=== PATIENT | male | born 1990 | race American Indian/Alaskan Native ===

== ENCOUNTER 2016-12-02 10:42 | Emergency (ER) | payer SELFPAY ==
[2016-12-02 11:39] VITALS: BP 115/76
[2016-12-02 13:02] LABS: Bacteria,Urine 1+ /HPF (Negative); Bilirubin,Urine NEG (Negative); Blood,Urine NEG (Negative); Ketones,Urine NEG (Negative); Leukocyte Esterase,Urine LG (Negative); Mucus,Urine FEW /HPF; Nitrite,Urine NEG (Negative); Protein,Urine <15 mg/dL mg/dL (Negative)
[2016-12-02 13:04] LABS: WBC,Urine > 182.0 /HPF (0.0-6.0)
[2016-12-02] MEDS ORDERED: ROCEPHIN IM ONE (13:28)
[2016-12-02] MEDS ORDERED: ZITHROMAX PO ONE (13:28)
[2016-12-02] MEDS ORDERED: XYLOCAINE 1% MPF 5 mL INFILTRATI ONE (13:28)
--- NOTE | 2016-12-02 13:47 | Emergency Department Report ---
Entered by BRETT VILLA, acting as scribe for CLEO TUCKER PA. ED Male HPI - General Chief complaint: Urogenital-Male Stated complaint: UTI Time Seen by Provider: 12/02/16 12:05 Source: patient Mode of arrival: Ambulatory Limitations: No Limitations - History of Present Illness Initial comments: 26 y/o male presents to the ED complaining of yellow colored penile discharge beginning yesterday. He admits to having recent unprotected intercourse. He has been previously diagnosed with Gonorrhea. The symptoms are aggravated by urination, with no alleviating factors. Associated symptom of dysuria (burning with urination), but he denies hematuria, urinary frequency, urinary urgency, nausea, vomiting, fever, SOB, chest pain, and abdominal pain. MD Complaint: penile discharge (yellow in color), dysuria (burning with urination) -: days(s) (1 day, yesterday) Location: penis Radiation: none Severity: mild Quality: burning Consistency: intermittent Improves with: none Worsens with: urination discharge (yellow in color). denies: swelling, blood in urine, fever, nausea/ vomiting, other (urinary urgency, urinary frequency) - Related Data Sexually active: Yes (patient admits to recently having unprotected intercourse) Previous Rx's Medication Instructions Recorded Last Taken Type Sulfamethoxazole/Trimethoprim 1 each PO BID #10 tablet 12/02/16 Unknown Rx [Bactrim DS TAB] Allergies Allergy/AdvReac Type Severity Reaction Status Date / Time No Known Allergies Allergy Unverified 10/05/13 23:19 ED Review of Systems Comment: All other systems reviewed and negative Constitutional: denies: chills, fever Respiratory: denies: shortness of breath Cardiovascular: denies: chest pain Gastrointestinal: denies: abdominal pain, nausea, vomiting Genitourinary: dysuria (burning with urination), discharge (yellow in color). denies: urgency, frequency, hematuria, testicular pain ED Past Medical Hx - Past Medical History Previous Medical History?: No - Surgical History Past Surgical History?: No - Social History Smoking Status: Never Smoker Substance Use Type: None - Medications Home Medications: Home Medications Medication Instructions Recorded Confirmed Last Taken Type Sulfamethoxazole/Trimethoprim 1 each PO BID #10 tablet 12/02/16 Unknown Rx [Bactrim DS TAB] ED Physical Exam - General Limitations: No Limitations - External exam: Present: normal external exam, other (Noted is some yellow penile discharge). Absent: erythema, swelling, lesions - Other Other exam information: GENERAL: The patient is well-developed and well-nourished. Patient is in NAD. HEAD: Normocephalic. Atraumatic. EYES: Extraocular motions are intact, PERRL. EARS: External ears are bilaterally normal; hearing grossly intact. NOSE: Normal nasal mucosa with no nasal discharge. THROAT: No erythema, swelling or exudates. NECK: Supple, nontender, without lymphadenopathy. No meningitic signs are noted. CHEST/LUNGS: Clear to auscultation throughout. HEART/CARDIOVASCULAR: Regular rate and rhythm. No murmurs, rubs or gallops. ABDOMEN: Abdomen is soft, nontender. Bowel sounds normoactive. No guarding or rebound tenderness. EXTREMITIES: No cyanosis, clubbing or edema. Peripheral pulses intact. Capillary refill less than 2 seconds. NEURO: Alert and oriented x 3. Normal gait. ED Course Vital Signs 12/02/16 11:37 Temperature 98.2 F Pulse Rate 64 Respiratory 16 Rate Blood Pressure 115/76 O2 Sat by Pulse 100 Oximetry ED Medical Decision Making - Lab Data Vital Signs 12/02/16 11:37 Temperature 98.2 F Pulse Rate 64 Respiratory 16 Rate Blood Pressure 115/76 O2 Sat by Pulse 100 Oximetry Lab Results 12/02/16 Range/Units 12:20 Urine Color Yellow (Yellow) Urine Turbidity Slightly-cloudy (Clear) Urine pH 8.0 H (5.0-7.0) Ur Specific [place] 1.016 (1.003-1.030) Urine Protein <15 mg/dl (Negative) mg/dL Urine Glucose (UA) Neg (Negative) mg/dL Urine Ketones Neg (Negative) mg/dL Urine Blood Neg (Negative) Urine Nitrite Neg (Negative) Urine Bilirubin Neg (Negative) Urine Urobilinogen 4.0 (<2.0) mg/dL Ur Leukocyte Esterase Lg (Negative) Urine WBC (Auto) > 182.0 H (0.0-6.0) /HPF Urine RBC (Auto) 3.0 (0.0-6.0) /HPF Urine Bacteria (Auto) 1+ (Negative) /HPF Urine Mucus Few /HPF - Medical Decision Making 26 y/o male presents complaining of yellow penile discharge and dysuria beginning yesterday. His urinalysis reveals large leukocyte esterase and elevated urine WBC. Patient is in no acute distress at this time. He will be discharged home on Bactrim and is encouraged to follow up with a primary care provider. He is encouraged to return to the emergency room for any worsening symptoms. ED Disposition Clinical Impression: Penile discharge UTI (urinary tract infection) Qualifiers: Urinary tract infection type: acute cystitis Hematuria presence: without hematuria Qualified Code(s): N30.00 - Acute cystitis without hematuria Disposition: DISCHARGED TO HOME OR SELFCARE Is pt being admited?: No Does the pt Need Aspirin: No Condition: Stable Instructions: Gonococcal Urethritis (ED), Chlamydia Infection (ED), Urinary Tract Infection in Men (ED) Additional Instructions: Follow-up with primary care provider. Return to the emergency department if symptoms worsen. Prescriptions: Sulfamethoxazole/Trimethoprim [Bactrim DS TAB] 1 each PO BID #10 tablet Referrals: PRIMARY CARE, [Primary Care Provider] - 3-5 Days [facility] [Outside] - 3-5 Days Forms: Work/School Release Form(ED) Time of Disposition: 13:44 This documentation as recorded by the ALLEN walters GRACE,accurately reflects the service I personally performed and the decisions made by ,CLEO TUCKER PA.
== END 2016-12-02 14:07 | disposition home or self-care (01) ==
LOC: ED 10:42
DX: R36.9 Urethral discharge, unspecified (principal); N30.00 Acute cystitis without hematuria
CPT/HCPCS: 81001; 87591; 96372; 99282; J0696

== ENCOUNTER 2018-06-02 21:11 | Emergency (ER) | payer SELFPAY ==
[2018-06-02 21:46] VITALS: BP 102/64
== END 2018-06-02 23:40 | disposition left against medical advice (07) ==
LOC: ED 21:11
DX: R05 Cough (principal); R07.0 Pain in throat; Z53.21 Procedure and treatment not carried out due to patient leaving prior to being seen by health care provider
CPT/HCPCS: 93005; 93010

== ENCOUNTER 2019-05-05 01:30 | Emergency (ER) | payer SELFPAY ==
[2019-05-05 02:22] LABS: Basophils % (Auto) 0.2 % (0.0-1.8); Hematocrit 43.3 % (35.5-45.6); Hemoglobin 14.7 gm/dl (11.8-15.2); Lymphocytes # (Auto) 0.8 K/mm3 (1.2-5.4); Lymphocytes % (Auto) 15.7 % (13.4-35.0); Mean Corpuscular HGB Conc 34 % (32-34); Mean Corpuscular Volume 93 fl (84-94); Monocytes # (Auto) 0.6 K/mm3 (0.0-0.8); Monocytes % (Auto) 12.3 % (0.0-7.3); Platelet Count 167 K/mm3 (140-440); Red Blood Count 4.68 M/mm3 (3.65-5.03); Red Cell Distribution Width 13.7 % (13.2-15.2)
[2019-05-05 02:36] LABS: Bacteria,Urine 1+ /HPF (Negative); Bilirubin,Urine NEG (Negative); Blood,Urine NEG (Negative); Color,Urine Amber (Yellow); Mucus,Urine 3+ /HPF
[2019-05-05 02:42] LABS: Alanine Aminotransferase 7 units/L (7-56); Albumin 4.4 g/dL (3.9-5); BUN/Creatinine Ratio 15; Blood Urea Nitrogen 9 mg/dL (9-20); Hemolysis Index 5
[2019-05-05] MEDS ORDERED: NACL 0.9% 1000 ML 1,000 ML IV ONE (03:58)
[2019-05-05] MEDS ORDERED: MORPHINE IV ONE (03:59)
[2019-05-05] MEDS ORDERED: ZOFRAN IV ONE (03:59)
--- NOTE | 2019-05-05 04:55 | Cat Scan Report ---
CT abdomen pelvis w con INDICATION / CLINICAL INFORMATION: Generalized abdominal pain and tenderness with nausea, vomiting and diarrhea. TECHNIQUE: The patient received 100 cc Omnipaque [address] scans at this location are performed using CT dose reduction for ALARA by means of automated exposure control. COMPARISON: None available. FINDINGS: ABDOMEN: There is mild to moderate diffuse bowel wall thickening involving the descending and proxima l sigmoid colon. There is mild increased density in the pericolonic fat. The remainder of the bowel i s normal. I see no evidence of obstruction or free air. There are a couple of tiny calculi in the lower pole the right kidney. There is no evidence of ureter al calculus or hydronephrosis. There is a 1.9 cm simple cyst in the right mid kidney anteromedially. There are multiple tiny smaller cysts scattered throughout both kidneys. The liver, spleen, gallbladd er, bile ducts, pancreas, and adrenal glands demonstrate no significant abnormality. PELVIS: There may be mild bowel wall thickening involving the rectum. The distal sigmoid colon appear s spared. The distal ureters, urinary bladder and prostate gland are normal. A normal retrocecal appe ndix is present. There is no evidence of diverticulitis. No abnormal mass or fluid collection is seen . I do not identify a hernia. No acute osseous abnormality is identified. IMPRESSION: 1. Mild to moderate left colitis. The findings are nonspecific and may be related to infectious, infl ammatory and pseudomembranous causes. 2. A couple of tiny nonobstructive right renal calculi. Bilateral simple renal cysts. Signer Name: Jeffrey Roberts MD Signed: 05/05/2019 4:50 AM Workstation Name: [email or web address]
--- NOTE | 2019-05-05 05:40 | Emergency Department Report ---
ED Abdominal Pain HPI - General Chief Complaint: Abdominal Pain Stated Complaint: ABDOMINAL PAIN Time Seen by Provider: 05/05/19 03:56 Source: patient, EMS Mode of arrival: Ambulatory Limitations: No Limitations - History of Present Illness Initial Comments: 28-year-old -Portuguese male presents to the emergency room for lower abdominal pain since Friday. Patient admits to nausea vomiting and diarrhea. Patient denies any fever or chills. Patient reports he has watery diarrhea. No past medical history currently takes no medications on a daily basis. MD Complaint: abdominal pain Onset/Timin Location: LLQ Severity: severe Severity scale (0 -10): 10 Quality: stabbing, sharp Consistency: constant Improves With: nothing Worsens With: nothing Associated Symptoms: nausea, vomiting, diarrhea - Related Data Previous Rx's Medication Instructions Recorded Last Taken Type Sulfamethoxazole/Trimethoprim 1 each PO BID #10 tablet 12/02/16 Unknown Rx [Bactrim DS TAB] Acetaminophen/Codeine [Tylenol 1 tab PO Q6H PRN #12 tab 07/23/18 Unknown Rx /Codeine # 3 tab] Amoxicillin/K Clav Tab [Augmentin 1 tab PO Q12HR #20 tab 07/23/18 Unknown Rx 875 mg] Chlorhexidine Mouthwash [Peridex] 15 ml MM BID #1 bottle 07/23/18 Unknown Rx Ibuprofen [Motrin] 600 mg PO Q8H PRN #20 tablet 07/23/18 Unknown Rx Ciprofloxacin HCl [Ciprofloxacin 500 mg PO Q12HR 5 Days #10 tab 05/05/19 Unknown Rx TAB] metroNIDAZOLE [Flagyl] 500 mg PO Q12HR #14 tab 05/05/19 Unknown Rx Allergies Allergy/AdvReac Type Severity Reaction Status Date / Time No Known Allergies Allergy Verified 06/02/18 21:45 ED Review of Systems ROS: Stated complaint: ABDOMINAL PAIN Other details as noted in HPI Comment: All other systems reviewed and negative ED Past Medical Hx - Past Medical History Previous Medical History?: No - Surgical History Past Surgical History?: No - Social History Smoking Status: Never Smoker Substance Use Type: None - Medications Home Medications: Home Medications Medication Instructions Recorded Confirmed Last Taken Type Sulfamethoxazole/Trimethoprim 1 each PO BID #10 tablet 12/02/16 Unknown Rx [Bactrim DS TAB] Acetaminophen/Codeine [Tylenol 1 tab PO Q6H PRN #12 tab 07/23/18 Unknown Rx /Codeine # 3 tab] Amoxicillin/K Clav Tab [Augmentin 1 tab PO Q12HR #20 tab 07/23/18 Unknown Rx 875 mg] Chlorhexidine Mouthwash [Peridex] 15 ml MM BID #1 bottle 07/23/18 Unknown Rx Ibuprofen [Motrin] 600 mg PO Q8H PRN #20 tablet 07/23/18 Unknown Rx Ciprofloxacin HCl [Ciprofloxacin 500 mg PO Q12HR 5 Days #10 tab 05/05/19 Unknown Rx TAB] metroNIDAZOLE [Flagyl] 500 mg PO Q12HR #14 tab 05/05/19 Unknown Rx ED Physical Exam - General Limitations: No Limitations General appearance: alert, in no apparent distress - Head Head exam: Present: atraumatic, normocephalic - Eye Eye exam: Present: normal appearance - ENT ENT exam: Present: mucous membranes moist - Neck Neck exam: Present: normal inspection, full ROM - Respiratory Respiratory exam: Present: normal lung sounds bilaterally. Absent: respiratory distress - Cardiovascular Cardiovascular Exam: Present: regular rate, normal rhythm. Absent: systolic murmur, diastolic murmur, rubs, gallop - GI/Abdominal GI/Abdominal exam: Present: soft, tenderness (llq). Absent: distended - Neurological Exam Neurological exam: Present: alert, oriented X3 - Psychiatric Psychiatric exam: Present: normal affect, normal mood - Skin Skin exam: Present: warm, dry, intact, normal color. Absent: rash ED Course Vital Signs 05/05/19 05/05/19 01:36 04:41 Temperature 99.0 F Pulse Rate 72 Respiratory 18 16 Rate Blood Pressure 110/77 O2 Sat by Pulse 99 Oximetry ED Medical Decision Making - Lab Data Result diagrams: 05/05/19 01:42 05/05/19 01:42 - Radiology Data Radiology results: report reviewed Patient: DEVANG DE LA CRUZ JR MR#: [id number] : 1990 Acct:[id number] Age/Sex: 28 / M ADM Date: 05/05/19 Loc: ED Attending Dr: Ordering Physician: JOHNNIE ALMEIDA Date of Service: 05/05/19 Procedure(s): CT abdomen pelvis w con Accession Number(s): [id number] cc: JOHNNIE ALMEIDA CT abdomen pelvis w con INDICATION / CLINICAL INFORMATION: Generalized abdominal pain and tenderness with nausea, vomiting and diarrhea. TECHNIQUE: The patient received 100 cc Omnipaque [address] scans at this location are performed using CT dose reduction for ALARA by means of automated exposure control. COMPARISON: None available. FINDINGS: ABDOMEN: There is mild to moderate diffuse bowel wall thickening involving the descending and proximal sigmoid colon. There is mild increased density in the pericolonic fat. The remainder of the bowel is normal. I see no evidence of obstruction or free air. There are a couple of tiny calculi in the lower pole the right kidney. There is no evidence of ureteral calculus or hydronephrosis. There is a 1.9 cm simple cyst in the right mid kidney anteromedially. There are multiple tiny smaller cysts scattered throughout both kidneys. The liver, spleen, gallbladder, bile ducts, pancreas, and adrenal glands demonstrate no significant abnormality. PELVIS: There may be mild bowel wall thickening involving the rectum. The distal sigmoid colon appears spared. The distal ureters, urinary bladder and prostate gland are normal. A normal retrocecal appendix is present. There is no evidence of diverticulitis. No abnormal mass or fluid collection is seen. I do not identify a hernia. No acute osseous abnormality is identified. IMPRESSION: 1. Mild to moderate left colitis. The findings are nonspecific and may be related to infectious, inflammatory and pseudomembranous causes. 2. A couple of tiny nonobstructive right renal calculi. Bilateral simple renal cysts. Signer Name: Jeffrey Roberts MD Signed: 05/05/2019 4:50 AM Workstation Name: [id number] Transcribed By: RT Dictated By: Jeffrey Roberts MD Electronically Authenticated By: Jeffrey Roberts MD Signed Date/Time: 05/05/19 0450 DD/ 0443 TD/TT: - Medical Decision Making 28-year-old -Portuguese male presents to the emergency room for lower abdominal pain since Friday. Patient admits to nausea vomiting and diarrhea. Patient denies any fever or chills. Patient reports he has watery diarrhea. No past medical history currently takes no medications on a daily basis. He was given IV fluids morphine and Zofran. Patient will be discharged home on Flagyl and Cipro for colitis. Patient be referred to urology for kidney stones gastroenterology for colitis. Critical care attestation.: If time is entered above; I have spent that time in minutes in the direct care of this critically ill patient, excluding procedure time. ED Disposition Clinical Impression: Colitis, Kidney stone Disposition: - TO HOME OR SELFCARE Is pt being admited?: No Does the pt Need Aspirin: No Condition: Stable Instructions: Infectious Colitis (ED) Additional Instructions: Complete antibiotics as prescribed. He can try [id number] loperamide or Imodium take as directed on package. Increase her water intake of vein should diet as tolerated. Prescriptions: Ciprofloxacin HCl [Ciprofloxacin TAB] 500 mg PO Q12HR 5 Days #10 tab metroNIDAZOLE [Flagyl] 500 mg PO Q12HR #14 tab Referrals: TEETEE CAICEDOTIPTON MD JOYCE [Primary Care Provider] - 3-5 Days MYA DEL ROSARIO MD [Staff Physician] - 3-5 Days [facility] [Provider Group] - 3-5 Days Forms: Work/School Release Form(ED)
[2019-05-05 06:08] VITALS: BP 117/80
== END 2019-05-05 06:07 | disposition home or self-care (01) ==
LOC: ED 01:30
DX: K52.9 Noninfective gastroenteritis and colitis, unspecified (principal); N20.0 Calculus of kidney
CPT/HCPCS: 36415; 74177; 80053; 81001; 83690; 85025; 96361; 96374; 96375; 99284; J2270; J2405; J7030; Q9967

== ENCOUNTER 2019-12-29 11:42 | Emergency (ER) | payer SELFPAY ==
[2019-12-29 12:01] VITALS: BP 113/81
--- NOTE | 2019-12-29 13:55 | Emergency Department Report ---
ED Male HPI - General Chief complaint: Urogenital-Male Stated complaint: BACK PAIN/DISCHARGE Time Seen by Provider: 12/29/19 13:22 Source: patient Mode of arrival: Ambulatory Limitations: No Limitations - History of Present Illness Initial comments: This is a 29-year-old male nontoxic, well nourished in appearance, no acute signs of distress presents to the ED for STD testing. Stated has some intermittent small amount of white colored penile discharge. Patient denies any testicular pain or swelling. Patient denies any penile ulcers or lesions. Patient denies any nausea, vomiting, chest pain, shortness of breathe, fever, chills, headache, back pain, numbness, tingling, stiff neck. Denies any back pains. Patient denies any urinary symptoms. Patient denies any allergies or PMH. -: days(s) Radiation: none Severity scale (0 -10): 0 Improves with: none Worsens with: none discharge. denies: swelling, mass, rash, urinary retention, blood in urine, dysuria, fever, nausea/vomiting, incontinence - Related Data Previous Rx's Medication Instructions Recorded Last Taken Type Sulfamethoxazole/Trimethoprim 1 each PO BID #10 tablet 12/02/16 Unknown Rx [Bactrim DS TAB] Acetaminophen/Codeine [Tylenol 1 tab PO Q6H PRN #12 tab 07/23/18 Unknown Rx /Codeine # 3 tab] Amoxicillin/K Clav Tab [Augmentin 1 tab PO Q12HR #20 tab 07/23/18 Unknown Rx 875 mg] Chlorhexidine Mouthwash [Peridex] 15 ml MM BID #1 bottle 07/23/18 Unknown Rx Ibuprofen [Motrin] 600 mg PO Q8H PRN #20 tablet 07/23/18 Unknown Rx Ciprofloxacin HCl [Ciprofloxacin 500 mg PO Q12HR 5 Days #10 tab 05/05/19 Unknown Rx TAB] metroNIDAZOLE [Flagyl] 500 mg PO Q12HR #14 tab 05/05/19 Unknown Rx Allergies Allergy/AdvReac Type Severity Reaction Status Date / Time No Known Allergies Allergy Verified 06/02/18 21:45 ED Review of Systems ROS: Stated complaint: BACK PAIN/DISCHARGE Other details as noted in HPI Constitutional: denies: chills, fever Eyes: denies: eye pain, eye discharge, vision change ENT: denies: ear pain, throat pain Respiratory: denies: cough, shortness of breath, wheezing Cardiovascular: denies: chest pain, palpitations Endocrine: no symptoms reported Gastrointestinal: denies: abdominal pain, nausea, diarrhea Genitourinary: discharge. denies: urgency, dysuria, frequency, hematuria, testicular pain, testicular mass Musculoskeletal: denies: back pain, joint swelling, arthralgia Skin: denies: rash, lesions Neurological: denies: headache, weakness, paresthesias Psychiatric: denies: anxiety, depression Hematological/Lymphatic: denies: easy bleeding, easy bruising ED Past Medical Hx - Past Medical History Previous Medical History?: No - Surgical History Past Surgical History?: No - Social History Smoking Status: Never Smoker Substance Use Type: None - Medications Home Medications: Home Medications Medication Instructions Recorded Confirmed Last Taken Type Sulfamethoxazole/Trimethoprim 1 each PO BID #10 tablet 12/02/16 Unknown Rx [Bactrim DS TAB] Acetaminophen/Codeine [Tylenol 1 tab PO Q6H PRN #12 tab 07/23/18 Unknown Rx /Codeine # 3 tab] Amoxicillin/K Clav Tab [Augmentin 1 tab PO Q12HR #20 tab 07/23/18 Unknown Rx 875 mg] Chlorhexidine Mouthwash [Peridex] 15 ml MM BID #1 bottle 07/23/18 Unknown Rx Ibuprofen [Motrin] 600 mg PO Q8H PRN #20 tablet 07/23/18 Unknown Rx Ciprofloxacin HCl [Ciprofloxacin 500 mg PO Q12HR 5 Days #10 tab 05/05/19 Unknown Rx TAB] metroNIDAZOLE [Flagyl] 500 mg PO Q12HR #14 tab 05/05/19 Unknown Rx ED Physical Exam - General Limitations: No Limitations ED Course Vital Signs 12/29/19 11:51 Temperature 98.1 F Pulse Rate 60 Respiratory 18 Rate Blood Pressure 113/81 O2 Sat by Pulse 100 Oximetry - Reevaluation(s) Reevaluation #1: 12/29/19 13:53 Patient is speaking in full sentences with no signs of distress noted. ED Medical Decision Making - Medical Decision Making This is a 29-year-old male that presents with nonmedical emergency. Patient is stable and was examined by me. Patient is asymptomatic and denies any symptoms. Patient states he just wants to be tested for STD. I will refer the patient [facility]. At time of discharge, the patient does not seem toxic or ill in appearance. No acute signs of distress noted. Patient agrees to discharge treatment plan of care. No further questions noted by the patient. Critical care attestation.: If time is entered above; I have spent that time in minutes in the direct care of this critically ill patient, excluding procedure time. ED Disposition Clinical Impression: Possible exposure to STD Disposition: MED SCREENING EXAM-LEFT Is pt being admited?: No Does the pt Need Aspirin: No Condition: Stable Instructions: Safe Sex (ED) Additional Instructions: Follow-up with a primary care doctor in 3-5 days or if symptoms worsen and continue return to emergency room as soon as possible. Referrals: PRIMARY MD BRETT [Primary Care Provider] - 3-5 Days RUTHY BIGGS MD [Staff Physician] - 3-5 Days [facility] [Provider Group] - 3-5 Days
== END 2019-12-29 14:00 | disposition left against medical advice (07) ==
LOC: ED 11:42
DX: R36.9 Urethral discharge, unspecified (principal); Z20.2 Contact with and (suspected) exposure to infections with a predominantly sexual mode of transmission
CPT/HCPCS: 99282

== ENCOUNTER 2020-07-10 06:19 | Emergency (ER) | payer SELFPAY ==
[2020-07-10] MEDS ORDERED: oxyCODONE /ACETAMINOPHEN 5-325MG TAB PO ONE (11:22)
[2020-07-10] MEDS ORDERED: KETOROLAC 10 MG TAB PO ONE (11:25)
[2020-07-10 12:14] LABS: Bilirubin,Urine NEG (Negative); Blood,Urine NEG (Negative); Color,Urine Yellow (Yellow); Mucus,Urine 1+ /HPF; Protein,Urine <15 mg/dL mg/dL (Negative); Urobilinogen,Urine < 2.0 mg/dL (<2.0)
--- NOTE | 2020-07-10 12:23 | Emergency Department Report ---
ED General Adult HPI - General Chief complaint: Back Pain/Injury Stated complaint: BACK PAIN, HEMORRHOIDS Time Seen by Provider: 07/10/20 10:27 Source: patient Mode of arrival: Ambulatory Limitations: No Limitations - History of Present Illness Initial comments: 30-year-old -[place] male patient presents with complaints of rectal pain x3 days. Patient states he believes he has a hemorrhoid because he has had a nodule in the area for years that swells up sometimes and drinks again. He reports he has been using [id number] hemorrhoid creams and his symptoms are not improving. He states the pain is radiating into his lower back and rates the pain as a 9/10 in severity. Pain worsens with sitting on his bottom. He denies any dysuria/hematuria, penile discharge, testicular pain/swelling, abdominal pain, nausea/vomiting/diarrhea, fever/chills/sweats, hematochezia, or blood when he wipes. Patient does admit to anal intercourse. He denies any other past medical history. Severity scale (0 -10): 10 - Related Data Previous Rx's Medication Instructions Recorded Last Taken Type Sulfamethoxazole/Trimethoprim 1 each PO BID #10 tablet 12/02/16 Unknown Rx [Bactrim DS TAB] Amoxicillin/K Clav Tab [Augmentin 1 tab PO Q12HR #20 tab 07/23/18 Unknown Rx 875 mg] Chlorhexidine Mouthwash [Peridex] 15 ml MM BID #1 bottle 07/23/18 Unknown Rx Ibuprofen [Motrin] 600 mg PO Q8H PRN #20 tablet 07/23/18 Unknown Rx Ciprofloxacin HCl [Ciprofloxacin 500 mg PO Q12HR 5 Days #10 tab 05/05/19 Unknown Rx TAB] metroNIDAZOLE [Flagyl] 500 mg PO Q12HR #14 tab 05/05/19 Unknown Rx Acetaminophen/Codeine [Tylenol 1 tab PO Q6H PRN #12 tab 07/10/20 Unknown Rx /Codeine # 3 tab] Docusate Sodium [Colace] 100 mg PO BID 10 Days #20 capsule 07/10/20 Unknown Rx Hydrocortisone/Lidocaine/Aloe 1 each RC TID PRN 7 Days #1 kit 07/10/20 Unknown Rx [Nuria-Madan 2-2% Kit] predniSONE [Deltasone] 20 mg PO BID 3 Days #6 tab 07/10/20 Unknown Rx Allergies Allergy/AdvReac Type Severity Reaction Status Date / Time No Known Allergies Allergy Verified 06/02/18 21:45 ED Review of Systems ROS: Stated complaint: BACK PAIN, HEMORRHOIDS Other details as noted in HPI Constitutional: denies: chills, diaphoresis, fever, malaise Respiratory: denies: shortness of breath Gastrointestinal: denies: abdominal pain, nausea, vomiting, diarrhea, constipation Genitourinary: denies: urgency, dysuria, frequency, hematuria, discharge, testicular pain, testicular mass Musculoskeletal: as per HPI. denies: joint swelling, arthralgia Skin: denies: rash, lesions, change in color Hematological/Lymphatic: denies: swollen glands ED Past Medical Hx - Past Medical History Previous Medical History?: No - Surgical History Past Surgical History?: No - Social History Smoking Status: Never Smoker Substance Use Type: None - Medications Home Medications: Home Medications Medication Instructions Recorded Confirmed Last Taken Type Sulfamethoxazole/Trimethoprim 1 each PO BID #10 tablet 12/02/16 Unknown Rx [Bactrim DS TAB] Amoxicillin/K Clav Tab [Augmentin 1 tab PO Q12HR #20 tab 07/23/18 Unknown Rx 875 mg] Chlorhexidine Mouthwash [Peridex] 15 ml MM BID #1 bottle 07/23/18 Unknown Rx Ibuprofen [Motrin] 600 mg PO Q8H PRN #20 tablet 07/23/18 Unknown Rx Ciprofloxacin HCl [Ciprofloxacin 500 mg PO Q12HR 5 Days #10 tab 05/05/19 Unknown Rx TAB] metroNIDAZOLE [Flagyl] 500 mg PO Q12HR #14 tab 05/05/19 Unknown Rx Acetaminophen/Codeine [Tylenol 1 tab PO Q6H PRN #12 tab 07/10/20 Unknown Rx /Codeine # 3 tab] Docusate Sodium [Colace] 100 mg PO BID 10 Days #20 capsule 07/10/20 Unknown Rx Hydrocortisone/Lidocaine/Aloe 1 each RC TID PRN 7 Days #1 kit 07/10/20 Unknown Rx [Nuria-Madan 2-2% Kit] predniSONE [Deltasone] 20 mg PO BID 3 Days #6 tab 07/10/20 Unknown Rx ED Physical Exam - General Limitations: No Limitations General appearance: alert, in no apparent distress - Head Head exam: Present: atraumatic, normocephalic - Eye Eye exam: Present: normal appearance. Absent: scleral icterus - Respiratory Respiratory exam: Absent: respiratory distress - Cardiovascular Cardiovascular Exam: Present: regular rate - GI/Abdominal GI/Abdominal exam: Present: soft, normal bowel sounds. Absent: distended, tenderness, guarding, rebound, rigid - Rectal Rectal exam: Present: hemorrhoids (Approximately 2 cm thrombosed external hemorrhoid noted with significant tenderness to palpation; no fluctuance or surrounding erythema is noted) - Extremities Exam Extremities exam: Present: normal inspection - Back Exam Back exam: Present: normal inspection, full ROM. Absent: tenderness - Neurological Exam Neurological exam: Present: alert, oriented X3 - Psychiatric Psychiatric exam: Present: normal affect, normal mood - Skin Skin exam: Present: warm, dry, intact, normal color. Absent: rash, cyanosis, diaphoretic, ecchymosis ED Course Vital Signs 07/10/20 07/10/20 07/10/20 07:35 11:56 11:57 Temperature 98.1 F Pulse Rate 77 Respiratory 16 16 18 Rate Blood Pressure 122/78 [Right] O2 Sat by Pulse 98 Oximetry ED Medical Decision Making - Medical Decision Making 30-year-old -[place] male patient presents with complaints of rectal pain x3 days. Patient states he believes he has a hemorrhoid because he has had a nodule in the area for years that swells up sometimes and drinks again. He reports he has been using [id number] hemorrhoid creams and his symptoms are not improving. He states the pain is radiating into his lower back and rates the pain as a 9/10 in severity. Pain worsens with sitting on his bottom. He denies any dysuria/hematuria, penile discharge, testicular pain/swelling, abdominal pain, nausea/vomiting/diarrhea, fever/chills/sweats, hematochezia, or blood when he wipes. Patient does admit to anal intercourse. He denies any other past medical history. Thrombosed hemorrhoid noted on rectal exam without erythema, bleeding, or drainage. Will treat with sits baths and medications. Patient to follow-up with PCP and general surgery for further evaluation. Discussed signs and symptoms that should prompt immediate return to the emergency department in detail with patient who verbalizes understanding. Critical care attestation.: If time is entered above; I have spent that time in minutes in the direct care of this critically ill patient, excluding procedure time. ED Disposition Clinical Impression: External hemorrhoid, thrombosed Disposition: DC-01 TO HOME OR SELFCARE Is pt being admited?: No Condition: Stable Instructions: Hemorrhoids (ED), Sitz Bath (GEN) Prescriptions: Hydrocortisone/Lidocaine/Aloe [Nuria-Madan 2-2% Kit] 1 each RC TID PRN 7 Days #1 kit PRN Reason: rectal pain/itching Docusate Sodium [Colace] 100 mg PO BID 10 Days #20 capsule predniSONE [Deltasone] 20 mg PO BID 3 Days #6 tab Acetaminophen/Codeine [Tylenol /Codeine # 3 tab] 1 tab PO Q6H PRN #12 tab PRN Reason: Pain , Severe (7-10) Referrals: PRIMARY CAREMD [Primary Care Provider] - 3-5 Days BRENDAN KHAN MD [Staff Physician] - 3-5 Days Forms: Work/School Release Form(ED)
[2020-07-10 12:50] VITALS: BP 111/58
== END 2020-07-10 12:50 | disposition home or self-care (01) ==
LOC: ED 06:19
DX: K64.5 Perianal venous thrombosis (principal); Z79.899 Other long term (current) drug therapy
CPT/HCPCS: 81001

== ENCOUNTER 2021-05-10 21:37 | Emergency (ER) | payer SELFPAY ==
[2021-05-10 22:19] VITALS: BP 146/91
[2021-05-10 23:05] LABS: Alanine Aminotransferase 7 units/L (7-56); Albumin 4.9 g/dL (3.9-5); BUN/Creatinine Ratio 10; Basophils % (Auto) 0.3 % (0.0-1.8); Blood Urea Nitrogen 8 mg/dL (9-20); Calcium 9.4 mg/dL (8.4-10.2); Eosinophils # (Auto) 0.1 K/mm3 (0.0-0.4); Hematocrit 44.7 % (35.5-45.6); Hemoglobin 15.2 gm/dl (11.8-15.2); Hemolysis Index 1; Lymphocytes # (Auto) 1.5 K/mm3 (1.2-5.4); Lymphocytes % (Auto) 20.2 % (13.4-35.0); Mean Corpuscular HGB Conc 34 % (32-34); Mean Corpuscular Volume 94 fl (84-94); Monocytes # (Auto) 0.8 K/mm3 (0.0-0.8); Monocytes % (Auto) 11.5 % (0.0-7.3); Platelet Count 195 K/mm3 (140-440); Red Blood Count 4.78 M/mm3 (3.65-5.03); Red Cell Distribution Width 12.5 % (13.2-15.2)
[2021-05-10] MEDS ORDERED: FAMOTIDINE 20 MG TAB PO ONE (23:50)
[2021-05-10] MEDS ORDERED: ONDANSETRON 4 MG ODT TAB PO ONE (23:50)
--- NOTE | 2021-05-10 23:55 | Emergency Department Report ---
ED N/V/D HPI - General Chief complaint: Nausea/Vomiting/Diarrhea Stated complaint: CHILLS THROWING UP Source: patient Mode of arrival: Ambulatory Limitations: No Limitations - History of Present Illness Initial comments: Patient is a 30-year-old -[place] male with no past medical history presents to the ED with complaint of acute onset persistent nausea, vomiting, diarrhea and diffuse abdominal pain for the last 2 days. Patient states that the last meal he ate was a pizza at a friend's house but states that no one else at home is at similar symptoms. Patient states that he has not been able to keep anything down the last 24 hours. Patient states that he has had up to 3 episodes of nausea and vomiting and diarrhea. Patient denies dizziness, syncope, fever, chills, cough, chest pain, shortness of breath, dysuria, urinary frequency and urgency, testicular pain, hematuria, low back pain or palpitations, headache or sore throat. MD complaint: nausea, vomiting, diarrhea -: Sudden, days(s) (2) Description of Vomiting: food contents, watery Description of Diarrhea: water Associated Abdominal Pain: No Location: diffuse Radiation: none Severity: moderate Pain Scale: 3 Quality: cramping, dull Consistency: intermittent Improves with: none Worsens with: vomiting Context: possible food poisoning Associated Symptoms: denies other symptoms, loss of appetite, nausea/vomiting. denies: myalgias, chest pain, cough, diaphoresis, fever/chills, headaches, malaise, rash, dysuria, shortness of breath, syncope, weakness - Related Data Previous Rx's Medication Instructions Recorded Last Taken Type Sulfamethoxazole/Trimethoprim 1 each PO BID #10 tablet 12/02/16 Unknown Rx [Bactrim DS TAB] Amoxicillin/K Clav Tab [Augmentin 1 tab PO Q12HR #20 tab 07/23/18 Unknown Rx 875 mg] Chlorhexidine Mouthwash [Peridex] 15 ml MM BID #1 bottle 07/23/18 Unknown Rx Ibuprofen [Motrin] 600 mg PO Q8H PRN #20 tablet 07/23/18 Unknown Rx Ciprofloxacin HCl [Ciprofloxacin 500 mg PO Q12HR 5 Days #10 tab 05/05/19 Unknown Rx TAB] metroNIDAZOLE [Flagyl] 500 mg PO Q12HR #14 tab 05/05/19 Unknown Rx Acetaminophen/Codeine [Tylenol 1 tab PO Q6H PRN #12 tab 07/10/20 Unknown Rx /Codeine # 3 tab] Docusate Sodium [Colace] 100 mg PO BID 10 Days #20 capsule 07/10/20 Unknown Rx Hydrocortisone/Lidocaine/Aloe 1 each RC TID PRN 7 Days #1 kit 07/10/20 Unknown Rx [Nuria-Madan 2-2% Kit] predniSONE [Deltasone] 20 mg PO BID 3 Days #6 tab 07/10/20 Unknown Rx Dicyclomine [Bentyl] 20 mg PO Q6H PRN #24 tablet 05/10/21 Unknown Rx Famotidine [Pepcid] 20 mg PO BID #60 tablet 05/10/21 Unknown Rx Ondansetron [Zofran Odt] 4 mg PO Q6HR PRN #20 tab.rapdis 05/10/21 Unknown Rx Allergies Allergy/AdvReac Type Severity Reaction Status Date / Time No Known Allergies Allergy Verified 06/02/18 21:45 ED Review of Systems ROS: Stated complaint: CHILLS THROWING UP Other details as noted in HPI Constitutional: chills, malaise, weakness. denies: fever Eyes: denies: eye pain, eye discharge, vision change ENT: denies: ear pain, throat pain Respiratory: denies: cough, shortness of breath, wheezing Cardiovascular: denies: chest pain, palpitations Endocrine: no symptoms reported Gastrointestinal: abdominal pain (Diffuse), nausea, vomiting, diarrhea Genitourinary: denies: urgency, dysuria Musculoskeletal: denies: back pain, joint swelling, arthralgia Skin: denies: rash, lesions Neurological: denies: headache, weakness, paresthesias Psychiatric: denies: anxiety, depression Hematological/Lymphatic: denies: easy bleeding, easy bruising ED Past Medical Hx - Past Medical History Previous Medical History?: No - Surgical History Past Surgical History?: No - Social History Smoking Status: Never Smoker Substance Use Type: None - Medications Home Medications: Home Medications Medication Instructions Recorded Confirmed Last Taken Type Sulfamethoxazole/Trimethoprim 1 each PO BID #10 tablet 12/02/16 Unknown Rx [Bactrim DS TAB] Amoxicillin/K Clav Tab [Augmentin 1 tab PO Q12HR #20 tab 07/23/18 Unknown Rx 875 mg] Chlorhexidine Mouthwash [Peridex] 15 ml MM BID #1 bottle 07/23/18 Unknown Rx Ibuprofen [Motrin] 600 mg PO Q8H PRN #20 tablet 07/23/18 Unknown Rx Ciprofloxacin HCl [Ciprofloxacin 500 mg PO Q12HR 5 Days #10 tab 05/05/19 Unknown Rx TAB] metroNIDAZOLE [Flagyl] 500 mg PO Q12HR #14 tab 05/05/19 Unknown Rx Acetaminophen/Codeine [Tylenol 1 tab PO Q6H PRN #12 tab 07/10/20 Unknown Rx /Codeine # 3 tab] Docusate Sodium [Colace] 100 mg PO BID 10 Days #20 capsule 07/10/20 Unknown Rx Hydrocortisone/Lidocaine/Aloe 1 each RC TID PRN 7 Days #1 kit 07/10/20 Unknown Rx [Nuria-Madan 2-2% Kit] predniSONE [Deltasone] 20 mg PO BID 3 Days #6 tab 07/10/20 Unknown Rx Dicyclomine [Bentyl] 20 mg PO Q6H PRN #24 tablet 05/10/21 Unknown Rx Famotidine [Pepcid] 20 mg PO BID #60 tablet 05/10/21 Unknown Rx Ondansetron [Zofran Odt] 4 mg PO Q6HR PRN #20 tab.rapdis 05/10/21 Unknown Rx ED Physical Exam - General Limitations: No Limitations General appearance: alert, in no apparent distress, anxious - Head Head exam: Present: atraumatic, normocephalic, normal inspection - Eye Eye exam: Present: normal appearance, PERRL, EOMI Pupils: Present: normal accommodation - ENT ENT exam: Present: normal exam, normal orophraynx, mucous membranes moist, TM's normal bilaterally, normal external ear exam - Neck Neck exam: Present: normal inspection, full ROM - Respiratory Respiratory exam: Present: normal lung sounds bilaterally. Absent: respiratory distress, wheezes, rales, chest wall tenderness, accessory muscle use, decreased breath sounds - Cardiovascular Cardiovascular Exam: Present: regular rate, normal rhythm, normal heart sounds. Absent: systolic murmur, diastolic murmur, rubs, gallop - GI/Abdominal GI/Abdominal exam: Present: soft, hyperactive bowel sounds. Absent: tenderness, guarding, rebound, rigid, normal bowel sounds, hypoactive bowel sounds, organomegaly - Extremities Exam Extremities exam: Present: normal inspection, full ROM, normal capillary refill - Back Exam Back exam: Present: normal inspection, full ROM. Absent: tenderness, CVA tenderness (R), CVA tenderness (L), muscle spasm, paraspinal tenderness, vertebral tenderness - Neurological Exam Neurological exam: Present: alert, oriented X3, CN II-XII intact, normal gait, reflexes normal - Psychiatric Psychiatric exam: Present: normal affect, normal mood - Skin Skin exam: Present: warm, dry, intact, normal color. Absent: rash ED Course Vital Signs 05/10/21 22:16 Temperature 98.4 F Pulse Rate 77 Respiratory 16 Rate Blood Pressure 146/91 O2 Sat by Pulse 98 Oximetry ED Medical Decision Making - Lab Data Result diagrams: 05/10/21 22:23 05/10/21 22:23 - Medical Decision Making This is a 30-year-old -[place] male with no past medical history presents to the ED with complaint of acute onset persistent nausea, vomiting, diarrhea and diffuse abdominal pain for the last 2 days. Patient states that the last meal he ate was a pizza at a friend's house but states that no one else at home is at similar symptoms. Patient states that he has not been able to keep anything down the last 24 hours. Patient states that he has had up to 3 episodes of nausea and vomiting and diarrhea. In the ED, patient is alert and oriented x3 and is not in any distress. Patient is hemodynamically stable. Patient was treated in the ED with antiemetics, antacids and pain medications. Lab test results were reviewed and are all nonactionable. On reevaluation, patient passed oral fluid challenge in the ED. Patient symptoms are likely carly l in etiology and patient was therefore discharged home on medications including antiemetics, antacids and antispasmodics and patient was advised to maintain a clear liquid diet for 12 to 24 hours, and to take medications and drink plenty of fluids. Patient was advised to return to the ED immediately if symptoms get worse or otherwise follow-up with his primary care physician in 5 to 7 days for reevaluation. - Differential Diagnosis Gastroenteritis; gastritis; GERD; cholelithiasis; UTI Critical care attestation.: If time is entered above; I have spent that time in minutes in the direct care of this critically ill patient, excluding procedure time. ED Disposition Clinical Impression: Viral gastroenteritis, Nausea, vomiting and diarrhea Disposition: HOME / SELF CARE / HOMELESS Is pt being admited?: No Does the pt Need Aspirin: No Condition: Stable Instructions: Viral Gastroenteritis, Adult, [id number], Nausea and Vomiting, Adult, [id number], Diarrhea, Adult, [id number] Additional Instructions: Your symptoms are likely viral, possibly food poisoning. Maintain a clear liquid diet for 12 to 24 hours while taking medications for nausea and vomiting. Therefore take medications with food, drink plenty of fluids and follow-up with your primary care physician in 5 to 7 days for reevaluation. Return to the ED immediately if symptoms get worse. Prescriptions: Dicyclomine [Bentyl] 20 mg PO Q6H PRN #24 tablet PRN Reason: Abdominal pain Famotidine [Pepcid] 20 mg PO BID #60 tablet Ondansetron [Zofran Odt] 4 mg PO Q6HR PRN #20 tab.rapdis PRN Reason: Nausea Referrals: [facility] [Provider Group] - 3-5 Days Forms: Work/School Release Form(ED) Time of Disposition: 23:52 Print Language: MONTENEGRIN
== END 2021-05-11 00:17 | disposition home or self-care (01) ==
LOC: ED 21:37
DX: A08.4 Viral intestinal infection, unspecified (principal); R11.2 Nausea with vomiting, unspecified; R19.7 Diarrhea, unspecified; Z79.899 Other long term (current) drug therapy
CPT/HCPCS: 36415; 80053; 85025; Q0162